=== PATIENT | male | born 1940 | race Caucasian/White ===

== ENCOUNTER → 2016-08-28 | Outpatient (CLI) | payer MEDICARE ==
[2013-11-12 07:57] VITALS: BP 147/80
[~2016-08-28] MED LIST: ASPI325T70 PO; CRESTOR10 MG PO; MULT-18 PO; OMEG500C PO
== END | disposition home or self-care (01) ==
LOC: LAB 09:30
PROVIDERS: ATTEND Internal Medicine Cardiovascular Disease
DX: E78.5 Hyperlipidemia, unspecified (principal)
CPT/HCPCS: 36415; 80061

== ENCOUNTER 2016-10-29 09:35 | Emergency (ER) | payer MEDICARE ==
[~2016-10-29] VITALS: Ht 175.3 cm; Wt 97.5 kg
[2016-10-29 09:46] VITALS: BP 182/81
--- NOTE | 2016-10-29 10:15 | PHYS DOC ---
Past Medical History Past Medical History: CAD, High Cholesterol Past Surgical History: Coronary Bypass Surgery, Other Additional Past Surgical Histo: BILATERAL ROTAR CUFF REPAIRS,PROSTATE,CATARACTS Alcohol Use: None Drug Use: None Adult General Chief Complaint Chief Complaint: RING REMOVAL HPI HPI Patient is a 76 year old male with history of high cholesterol and CAD who presents today with request to remove his wedding band from the left ring finger. Patient states he jammed his left ring finger yesterday causing swelling to the left ring finger. Patient states he attempted to remove the ring finger at home with no success. Review of Systems Review of Systems Constitutional: Denies fever or chills [] Musculoskeletal: remove his wedding band from the left ring finger Integument: Denies rash or skin lesions [] Neurologic: Denies headache, focal weakness or sensory changes [] Endocrine: Denies polyuria or polydipsia [] Allergies Allergies Allergies Coded Allergies Type Severity Reaction Last Updated Verified No Known Drug Allergies 11/12/13 No Physical Exam Physical Exam Constitutional: Well developed, well nourished, no acute distress, non-toxic appearance. [] Skin: Warm, dry, no erythema, no rash. [] Back: No tenderness, no CVA tenderness. [] Extremities: Left ring finger with mild amount of soft tissue swelling especially around the PIP joint of the ring finger. The nurses had already removed patient's ring finger wedding band. Full range of motion to the left ring finger. +2 left radial pulse. Adequate ulnar sensation to the left ring finger. Neurologic: Alert and oriented X 3, normal motor function, normal sensory function, no focal deficits noted. [] Psychologic: Affect normal, judgement normal, mood normal. [] Current Patient Data Vital Signs Vital Signs Date Time Temp Pulse Resp B/P (MAP) Pulse Ox O2 Delivery O2 Flow Rate FiO2 10/29/16 09:46 97.7 59 16 98 Room Air 97.7 EKG EKG [] Radiology/Procedures Radiology/Procedures [] Course & Med Decision Making Course & Med Decision Making Pertinent Labs and Imaging studies reviewed. (See chart for details) Patient is in the ED requesting we remove his wedding band from the left ring finger after jamming his finger yesterday. By the time I evaluated patient the ring finger had already be removed by the nurses. Patient's blood pressure was 182/81. He denies any history of hypertension. I offered patient x-rays of the finger. He refused. He stated he'll follow-up with his own PCP for his blood pressure as well as the finger x-ray. Christi Disclaimer Christi Disclaimer This electronic medical record was generated, in whole or in part, using a voice recognition dictation system. Departure Departure Impression: Primary Impression: Tight ring on finger Additional Impression: High blood pressure Disposition: HOME, SELF-CARE Condition: STABLE Referrals: ARELY SALAS MD (PCP) Follow-up with your primary care doctor for your high blood pressure as well as if you need x-rays of the finger Patient Instructions: Hypertension Additional Instructions: You had a wedding band removed from the left ring finger. Ice and elevate the extremity. Your blood pressure was 182/81 in the emergency room. Follow-up with your primary care doctor for this. Come back to the ED for any concerning symptoms. Problem Qualifiers Additional Impression: High blood pressure Hypertension type: unspecified secondary hypertension Qualified Codes: I15.9 - Secondary hypertension, unspecified VEE FOSTER MUSHROOM PICKER Oct 29, 2016 10:15
== END 2016-10-29 10:30 | disposition home or self-care (01) ==
LOC: ER 09:35
DX: S60.455A Superficial foreign body of left ring finger, initial encounter (principal); I15.9 Secondary hypertension, unspecified; I25.10 Atherosclerotic heart disease of native coronary artery without angina pectoris; Z95.1 Presence of aortocoronary bypass graft; E78.00 Pure hypercholesterolemia, unspecified; X58.XXXA Exposure to other specified factors, initial encounter; Y93.89 Activity, other specified; Y92.89 Other specified places as the place of occurrence of the external cause; Y99.8 Other external cause status
CPT/HCPCS: 99284

== ENCOUNTER → 2016-11-30 | Outpatient (CLI) | payer MEDICARE ==
[2016-11-30 10:42] LABS: CHOLESTEROL/HDL RATIO 2.6
== END | disposition home or self-care (01) ==
LOC: LAB 10:01
PROVIDERS: ATTEND Internal Medicine Cardiovascular Disease
DX: E78.5 Hyperlipidemia, unspecified (principal)
CPT/HCPCS: 36415; 80061

== ENCOUNTER → 2017-02-28 | Outpatient (CLI) | payer MEDICARE ==
[2017-02-28 12:15] LABS: CHOLESTEROL/HDL RATIO 2.4
== END | disposition home or self-care (01) ==
LOC: LAB 10:53
PROVIDERS: ATTEND Internal Medicine Cardiovascular Disease
DX: E78.5 Hyperlipidemia, unspecified (principal)
CPT/HCPCS: 36415; 80061

== ENCOUNTER → 2018-04-26 | Outpatient (CLI) | payer MEDICARE ==
[2018-04-26 09:39] LABS: CHOLESTEROL/HDL RATIO 2.9
== END | disposition home or self-care (01) ==
LOC: LAB 08:55
PROVIDERS: ATTEND Internal Medicine Cardiovascular Disease
DX: E78.49 Other hyperlipidemia (principal)
CPT/HCPCS: 36415; 80061

== ENCOUNTER → 2019-02-12 | Day surgery (SDC) | payer MEDICARE ==
[~2019-02-12] MED LIST changes: +ASPI325T8 PO; +CRESTOR20 MG PO; +EZET10TA20 PO; +GLYCOPYRROLATE 1 MG/5 ML VIAL. ONE; +HYDROmorphone 2 MG/ML VIAL IV PRN; +IV RINGERS,LACTATED 1000ML 1,000 ML IV SCH; +LIDOCAINE 1% PF 2 ML VIAL. ID PRN; +LIDOCAINE 2% PF 5 ML VIAL. ONE; +LISI-338 PO; +MORPHINE SULFATE 2 MG/ML VIAL. IV PRN; +ONDANSETRON PF 4 MG/2 ML VIAL. IV PRN; +PROCHLORPERAZINE 10 MG/2 ML VIAL. IV PRN; +PROPOFOL 40 ML IV ONE; +fentaNYL PF VIAL 100 MCG/2 ML VIAL IV PRN
[2019-02-12 08:27] VITALS: BP 138/66
--- NOTE | 2019-02-12 10:32 | HP ---
ADMIT DATE: 02/12/2019 REFERRING PHYSICIAN: Tevin Vera MD REASON: Family history of colon cancer. HISTORY OF PRESENT ILLNESS: A 78-year-old male with past medical history significant for organic heart disease, hypertension as well as hyperlipidemia, status post CABG, status post eye surgery, status post tonsillectomy, status post TURP, is seen for interval colon exam. Bowel habits are regular without diarrhea or constipation. There has been no melena and/or hematochezia. Weight and appetite are stable. Prior colonoscopy was unrevealing for polyps or cancers. Family history is positive for colon cancer with his father in his mid 70s, otherwise without additional complaints. PAST MEDICAL HISTORY: Organic heart disease, hypertension, hyperlipidemia. PAST SURGICAL HISTORY: Status post TURP, status post CABG, status post tonsillectomy and status post eye surgery. ALLERGIES: CRESTOR. MEDICATIONS: Include aspirin, Zetia, lisinopril, multivitamin, fish oil, and . SOCIAL HISTORY: Nonsmoker and social drinker. FAMILY HISTORY: Significant for colon cancer with his father. REVIEW OF SYSTEMS: As per records. PHYSICAL EXAMINATION: VITAL SIGNS: Temperature is 97.8, pulse 66, respirations 20. HEENT: Normocephalic, atraumatic head. Pupils and extraocular muscles are not tested. Sclerae are anicteric. NECK: Supple. LUNGS: Clear. CARDIOVASCULAR: Reveals an S1, S2 without S3, S4 or appreciable murmur. ABDOMEN: Reveals a soft abdomen, normal bowel sounds, without appreciable hepatosplenomegaly. EXTREMITIES: Reveals no cyanosis, clubbing, edema. IMPRESSION AND PLAN: Family history of colon cancer. Surveillance exam is recommended at this time. Risks and benefits of the procedure including risk of hemorrhage and perforation requiring operation were discussed. The patient is willing to proceed. CASEY CHOW MD DR: CONRAD/montse JOB#: [id number] / [id number]
== END ==
LOC: ENDOS 06:31
PROVIDERS: ATTEND Internal Medicine Gastroenterology
DX: K64.0 First degree hemorrhoids (principal); K63.89 Other specified diseases of intestine; I11.9 Hypertensive heart disease without heart failure; E78.5 Hyperlipidemia, unspecified; Z80.0 Family history of malignant neoplasm of digestive organs; Z95.1 Presence of aortocoronary bypass graft; Z98.890 Other specified postprocedural states; Z88.8 Allergy status to other drugs, medicaments and biological substances; Z72.89 Other problems related to lifestyle
CPT/HCPCS: 45378; J2001; J2704; J3490

== ENCOUNTER → 2020-11-09 | Outpatient (CLI) | payer MEDICARE ==
[2019-02-12 08:27] VITALS: BP 138/66
[~2020-11-09] MED LIST changes: -GLYCOPYRROLATE 1 MG/5 ML VIAL. ONE; -HYDROmorphone 2 MG/ML VIAL IV PRN; -IV RINGERS,LACTATED 1000ML 1,000 ML IV SCH; -LIDOCAINE 1% PF 2 ML VIAL. ID PRN; -LIDOCAINE 2% PF 5 ML VIAL. ONE; -LISI-338 PO; +LISI-517 PO; -MORPHINE SULFATE 2 MG/ML VIAL. IV PRN; -ONDANSETRON PF 4 MG/2 ML VIAL. IV PRN; -PROCHLORPERAZINE 10 MG/2 ML VIAL. IV PRN; -PROPOFOL 40 ML IV ONE; -fentaNYL PF VIAL 100 MCG/2 ML VIAL IV PRN
--- NOTE | 2020-11-09 14:31 | KCIC ---
EXAM: Bilateral knees, 3 views; bilateral hands, 3 views; left shoulder, 3 views. HISTORY: Pain. COMPARISON: None. FINDINGS: Bilateral knees: 3 views of both knees are obtained. There is no fracture, dislocation or subluxation . There is no significant joint effusion. Bilateral hands: 3 views of both hands are obtained. There is severe left first interphalangeal joint and second and third distal interphalangeal joint spurring, moderate left fifth distal interphalange al joint spurring and mild first carpometacarpal joint spurring. There is left triscaphe joint space narrowing with subchondral sclerosis. There is a corticated ossicle adjacent to the left ulnar styloi d. There is moderate right first interphalangeal joint, second distal interphalangeal joint and fifth proximal and distal interphalangeal joint space narrowing and spurring. There is mild first carpomet acarpal joint spurring and mild right triscaphe joint space narrowing. Left shoulder: 3 views of the left shoulder obtained. There is no acute fracture, dislocation or subl uxation. There is moderate marginal spurring involving the humeral head. There is degenerative cortic al irregularity along the superior humeral head. No avascular necrosis or osteochondral lesion is see n. There is minimal acromioclavicular joint osteoarthritis. There is evidence of prior CABG. IMPRESSION: 1. No acute osseous finding. 2. 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 There is also mo derate osteoarthritis involving the first carpometacarpal joints and left triscaphe joint and mild os teoarthritis involving the right triscaphe joint. 3. Moderate left glenohumeral joint and mild left acromioclavicular joint osteoarthritis. Electronically signed by: Magy Frost MD (11/09/2020 2:28 PM) [facility]
== END ==
LOC: KCIC 13:17
PROVIDERS: ATTEND Family Medicine
DX: M19.012 Primary osteoarthritis, left shoulder (principal); M19.042 Primary osteoarthritis, left hand; M19.041 Primary osteoarthritis, right hand
CPT/HCPCS: 73030; 73130-50; 73562-50